=== PATIENT | male | born 1945 | race Caucasian/White ===

== ENCOUNTER 2024-01-28 16:14 | Emergency (ER) | payer MEDICARE, OTHER, SELFPAY ==
[2024-01-28 16:17] VITALS: BP 147/82
[2024-01-28 16:19] VITALS: BP 147/82
--- NOTE | 2024-01-28 16:40 | ED.GENMED ---
History of Present Illness
General
Chief Complaint: Facial Problem
Source: patient and spouse
Exam Limitations: none
Time Seen by Provider: 01/28/24 16:39
Nursing documentation reviewed up to this point in time: agreed with
Travel History
Have you had any contact with someone who has COVID-19?: No
Do you have any symptoms of coronavirus? Fever > 100 degrees, chills, cough, shortness of breath, sore throat, loss of taste or smell, muscle aches, or headache?: No
History of Present Illness
History of Present Illness:
78 yo male from home where he lives with , states he's had pain right lower jaw with gradually worsening right jaw and lip swelling over past 2 days. No new medications. Denies fever/chills, n/v. Recently had two of his tooth implants fall out,
one in the right lower jaw.
Hx of Neuropathy, Myasthenia Gravis, Afib on eliquis, HLD, HTN, morbid obesity, BPH w frequent urination, IDDM.
Past History
Past History
ED Past Medical History: Arrthythmia (Atrial fibrillation), CHF, CVA (TIA), HTN, Hypercholesterolemia, IDDM, Psychiatric (Anxiety) and Other (BPH, morbid obesity, neuropathy)
ED Past Surgical History: Orthopedic (Knee arthroscopy)
Social History
Tobacco: Former smoker
Alcohol: None
Drug: None
Personal:
Living: with family
Employment: Retired
Family History
Family History: Other (Noncontributory)
Review of Systems
Review of Systems
Allergies reviewed?: Yes
All Other Systems: ROS reviewed and negative except as documented in HPI and ROS
Constitutional: Denies fever or chills
EENT: Reports mouth pain and mouth swelling; Denies sore throat
Respiratory: Denies trouble breathing
Cardiac: Denies chest pain
ABD/GI: Denies abdominal pain or nausea
Musculoskeletal: Denies neck pain
Skin: Reports no symptoms
Neurological: Denies headache
Phy Exam
Physical Exam
Physical Exam:
GENERAL: No acute distress. A&Ox3.
CONSTITUTIONAL: Afebrile.
EYES: PERRL, conjunctivae normal
Neck: Supple, no lymphadenopathy
ENMT: Right side upper lip and lower lip are mildly swollen. Moist mucus membranes, Pharynx nl no intraoral lesions., R buccal mucosa border tender with no significant swelling, no drainage. No abscess. Numerous blackish nubs in gums
RESPIRATORY: Regular respirations, nonlabored, lungs clear.
CARDIOVASCULAR: Regular rate and rhythm, no murmurs, no rubs.
GI: Soft, nontender, normal BS
MUSCULOSKELETAL: Morbid obesity, bilateral lymphedema
SKIN: Warm, dry, pink
PSYCH: Normal mood and affect. Well kept, interactive and appropriate
NEUROLOGIC: Awake, alert and oriented. No focal neurological deficits
Course
Orders/Labs/Results
Orders:
Orders
01/28/24 16:45
Complete Blood Count/With Diff Urgent
Comprehensive Metabolic Panel Urgent
NT-proBNP Urgent
01/28/24 18:08
Amoxicillin 875 mg/Clav 125 mg [Augmentin 875 mg/125 mg] 1 tablet PO NOW STA
Abnormal Lab Results
01/28/24
16:45
RBC 4.40 L 10^6/uL
(4.70-6.10)
Hgb 12.5 L g/dL
(13.0-18.0)
MCHC 31.5 L g/dL
(33.0-37.0)
MPV 10.7 H fL
(7.4-10.4)
Carbon Dioxide 33 H mmol/L
(22-30)
BUN 26 H mg/dl
(9-20)
Total Protein 6.1 L g/dl
(6.3-8.2)
Albumin 3.3 L g/dl
(3.5-5.0)
01/28/24 16:45
01/28/24 16:45
Vital Signs
Initial and Last Documented VS:
Initial Vital Signs
Temp Pulse Resp BP Pulse Ox
98.2 F 81 18 147/82 94
01/28/24 16:17 01/28/24 16:17 01/28/24 16:17 01/28/24 16:17 01/28/24 16:17
Last Documented Vital Signs
Temp Pulse Resp BP Pulse Ox
98.5 F 68 20 102/91 90
01/29/24 07:38 01/29/24 09:45 01/29/24 09:45 01/29/24 09:00 01/29/24 08:15
MDM/Problems Addressed
Differential Diagnosis Includes:
dental infection/abscess, medication reaction
MDM/Problems Addressed:
78 yo male from home where he lives with , states he's had pain right lower jaw with gradually worsening right jaw and lip swelling over past 2 days. No new medications. Denies fever/chills, recently had two of his tooth implants fall out one in
the R lower jaw.
Hx of Neuropathy, Myasthenia Gravis, Afib on eliquis, HLD, HTN, morbid obesity, BPH w frequent urination, IDDM.
Afebrile, NAD
Mild swelling right upper lip, less on lower lip. Tongue normal, no intraoral lesions, no lymphadenopathy, tender along R lower buccal mucosal border. Mult nubs where teeth were.
Pt does not get out of house. His dentist comes to house, last visit 2 months ago.
Pt has PCP that comes to his house q 6 months.
5:49 PM
at bedside states his face and lip swelling is much improved.
CBC with no clinically significant abnormality
CMP: BUN 26, otherwise unremarkable. Patient instructed to drink more, he says he has not drank anything all day, at bedside says she will encourage him to drink.
Patient denies blurry or double vision, denies trouble chewing or swallowing, is having a little trouble speaking due to the swelling of his lips, he denies new weakness in the arms or legs. He denies shortness of breath, no indication of MG
causing symptoms
[place]: Treat for early dental infection, rx for Augmentin sent to his pharmacy, increase fluids, call PCP to re evaluate if not 100% better in one week. Return instructions reviewed.
Pt and very appreciative of the care.
6:42 PM
Ambulance crew called stating they cannot transport patient home tonight due to lack of staff that can accommodate patient's weight
They will be here in the morning when the new staff shift comes on. Pt and informed
01/29/24
10:00 a.m.
Pt transported back home via ambulance
Lip and facial swelling completely resolved
*Critical Care Note
Total Time (30-74mins, 75-104mins- exclusive of procedures): Not Applicable
ED Attending Note
-
Portions of this chart may have been created with voice recognition software.� Occasional wrong word or��sound alike� substitutions may have occurred due to the inherent limitations of voice recognition software.
Discharge Plan
Departure
Patient Disposition: Home (Routine Discharge)
Date of Disposition: 01/29/24
Time of Disposition: 09:54
Patient with high blood pressure during this ER visit?: No
Condition: Good
Discharge Problem:
Dental infection
Instructions: Tooth Abscess ED
Prescriptions:
New
amoxicillin-pot clavulanate 875-125 mg tablet
1 tab PO BID Qty: 14 0RF
No Action
gabapentin 300 MG capsule
600 mg PO BID
psyllium husk [Metamucil] 0.52 GM capsule
2 tab PO BID
atorvastatin 10 MG tablet
10 mg PO HS
pyridostigmine bromide 60 MG tablet
60 mg PO BID
furosemide 40 MG tablet
40 mg PO BID
cholecalciferol (vitamin D3) 1,000 UNITS tablet
1,000 units PO DAILY
fenofibric acid (choline) 135 MG capsule,delayed release(DR/EC)
135 mg PO DAILY
Eliquis 5 MG tablet
5 mg PO BID
zinc 50 MG tablet
50 mg PO DAILY
insulin lispro [Humalog KwikPen Insulin] 100 UNIT/ML insulin pen
16 units SC BID
fish oil-dha-epa 1 EACH capsule
1 ea PO BID
insulin glargine [Lantus Solostar U-100 Insulin] 300 UNITS/3 ML insulin pen
60 units SC BID
prednisone 10 MG tablet
5 mg PO Q48H
acetaminophen 325 MG tablet
650 mg PO Q4HWA 0RF
doxycycline hyclate 100 MG capsule
100 mg PO Q12@1100,2300 4 Days Qty: 8 0RF
cefuroxime axetil 500 MG tablet
500 mg PO BID 4 Days Qty: 8 0RF
tramadol 50 MG tablet
50 mg PO BIDPRN PRN (Reason: moderate pain) 10 Days Qty: 20 0RF
Referrals:
Conor Hutchison DO [Family Provider] - Follow up in 10 days
Activity Restrictions/Additional Instructions:
As we discussed, although I see no sign of abscess, I have provided you with information FYI.
I sent a prescription to your pharmacy for antibiotic Augmentin to take twice a day for 7 days.
Have your doctor re evaluated in 7-10 days if not 100% better by then
Return here immediately for increasing swelling, pain, fever, vomiting or feeling sicker in any way.
Interventions
Interventions:
*Risk Screen - Suicide Last Done: 01/28/24 16:17
*General Assessment Last Done: 01/28/24 16:17
*Neglect/Abuse Screening Last Done: 01/28/24 16:17
ED- Fall Risk Assessment Last Done: 01/29/24 07:38
*ED COVID-19 Vaccine History Last Done: 01/29/24 09:54
*Nursing Disposition Last Done: 01/29/24 09:54
ED- Neurological Assessment Last Done: 01/29/24 07:38
ED-Skin Assessment Last Done: 01/29/24 07:38
Discharge Date and Time
Print Language: ROMANSH
[2024-01-28 16:55] LABS: % Basophils 0.9 % (0-2); % Eosinophils 3.7 % (0-6); % Immature Granulocytes 0.3 % (0-0.5); % Lymphocytes 32.1 % (20.5-51.1); % Monocytes 7.1 % (1.7-9.3); % Neutrophils 55.9 % (42.2-75.2); Absolute Basophils 0.1 10^3/uL (0-0.2); Absolute Eosinophils 0.3 10^3/uL (0-0.7); Absolute Lymphocytes 2.2 10^3/uL (1.2-3.4); Absolute Monocytes 0.5 10^3/uL (0.1-0.6); Absolute Neutrophils 3.8 10^3/uL (1.4-6.5); Hematocrit 39.7 % (39.0-52.0); Hemoglobin 12.5 g/dL (13.0-18.0); Mean Corp Hgb Conc. 31.5 g/dL (33.0-37.0); Mean Corpuscular Hgb 28.4 pg (27.0-31.0); Mean Corpuscular Volume 90.2 fL (80.0-94.0); Mean Platelet Volume 10.7 fL (7.4-10.4); Nucleated Red Blood Cells % 0 % (-); Platelet Count 189 10^3/uL (130-400); Red Cell Dist. Width 13.9 % (11.5-14.5); White Blood Cell Count 6.7 10^3/uL (4.8-10.8)
[2024-01-28 17:00] VITALS: BP 144/74
[2024-01-28 17:19] LABS: NT-proBNP 399 pg/ml
[2024-01-28 17:57] LABS: ALT (SGPT) 18 U/L (0-50); AST (SGOT) 27 U/L (17-59); Albumin 3.3 g/dl (3.5-5.0); Alkaline Phosphatase 47 U/L (38-126); Blood Urea Nitrogen 26 mg/dl (9-20); Calcium 9.5 mg/dl (8.4-10.2); Carbon Dioxide 33 mmol/L (22-30); Chloride 104 mmol/L (98-107); Glucose 94 mg/dl (70-99); Sodium 143 mmol/L (135-145); Total Bilirubin 0.8 mg/dl (0.2-1.3); Total Protein 6.1 g/dl (6.3-8.2); eGFR > 60.00
[2024-01-28 18:00] VITALS: BP 166/94
[2024-01-28] MEDS: AUGMENTIN 875 MG/125 MG 1 TABLET PO (18:23)
[2024-01-28 23:48] VITALS: BP 159/71
[2024-01-29] VITALS: BP 166/86
[2024-01-29 07:38] VITALS: BP 170/94
[2024-01-29 07:45] VITALS: BP 170/94
[2024-01-29 08:00] VITALS: BP 157/77
[2024-01-29 09:00] VITALS: BP 102/91
--- NOTE | 2024-01-29 09:54 | EDRN ---
verbal report given to Acute Care Transport
== END 2024-01-29 10:02 | disposition home or self-care (01) ==
LOC: EMR 16:14
PROVIDERS: Registered Nurse; EMERGENCY PHYSICIAN Emergency Medicine; FAMILY PHYSICIAN Family Medicine
DX: K04.7 Periapical abscess without sinus (principal); E11.9 Type 2 diabetes mellitus without complications; E66.01 Morbid (severe) obesity due to excess calories; E78.00 Pure hypercholesterolemia, unspecified; G70.00 Myasthenia gravis without (acute) exacerbation; I11.0 Hypertensive heart disease with heart failure; I50.9 Heart failure, unspecified; I48.91 Unspecified atrial fibrillation; N40.1 Benign prostatic hyperplasia with lower urinary tract symptoms; Z79.01 Long term (current) use of anticoagulants; Z79.4 Long term (current) use of insulin; Z86.73 Personal history of transient ischemic attack (TIA), and cerebral infarction without residual deficits; Z87.891 Personal history of nicotine dependence
CPT/HCPCS: 99283; 80053; 83880; 85025

== ENCOUNTER 2024-06-17 21:19 | Emergency (ER) | payer MEDICARE, OTHER, SELFPAY ==
[2024-06-17] VITALS (18 sets, daily range): BP systolic 119–199; BP diastolic 49–113
[2024-06-17 21:25] LABS: Glucose - Point of Care 227 mg/dl (70-99)
[2024-06-17] MEDS: SUBLIMAZE 150 MCG IV (21:30)
[2024-06-17 21:49] LABS: % Basophils 0.9 % (0-2); % Eosinophils 2.4 % (0-6); % Immature Granulocytes 0.3 % (0-0.5); % Neutrophils 72.4 % (42.2-75.2); Absolute Basophils 0.1 10^3/uL (0-0.2); Absolute Eosinophils 0.2 10^3/uL (0-0.7); Absolute Lymphocytes 1.2 10^3/uL (1.2-3.4); Absolute Monocytes 0.4 10^3/uL (0.1-0.6); Absolute Neutrophils 4.8 10^3/uL (1.4-6.5); Mean Corp Hgb Conc. 32.5 g/dL (33.0-37.0); Mean Corpuscular Hgb 27.8 pg (27.0-31.0); Mean Corpuscular Volume 85.7 fL (80.0-94.0); Nucleated Red Blood Cells % 0 % (-); Platelet Count 177 10^3/uL (130-400); Red Blood Cell Count 4.67 10^6/uL (4.70-6.10); Red Cell Dist. Width 15.7 % (11.5-14.5); White Blood Cell Count 6.7 10^3/uL (4.8-10.8)
--- NOTE | 2024-06-17 21:50 | ED.CVA ---
Addendum entered and electronically signed by German Veronica DO 06/18/24 15:48:
Patient was intubated by me using the glide scope and intubated with a 8.0 tube. Was confirmed by auscultation, chest x-ray, direct visualization and as well as capnography. No complications.
Original Note:
History of Present Illness
General
Chief Complaint: CVA/TIA Symptoms
Source: records, family and ambulance crew
Exam Limitations: altered mental status
Time Seen by Provider: 06/17/24 21:36
Nursing documentation reviewed up to this point in time: agreed with
Onset of Stroke Symptoms
Onset of symptoms known: Yes
Date of onset of symptoms: 06/17/24
Time of onset of symptoms: 19:30
Time pt last seen normal is known: Yes
Date last time pt seen normal: 06/17/24
Time last time pt seen normal: 19:30
History of Present Illness
History of Present Illness:
Patient is a 79-year-old male with a history of myasthenia gravis, CHF and atrial fibrillation who is on Eliquis and had 730 tonight while watching the [email or web address] game and after dinner he suddenly went unresponsive according to his . Just prior
to that he had said he had a right sided headache. Patient has chronic muscle pain from his myasthenia's. Years ago he had CHF. Patient has not complained of any GI or symptoms. Patient has not been ill recently with fever, chills, nasal
congestion, sore throat or cough. Patient has not complained of chest pain or shortness of breath.
Past History
Past History
ED Past Medical History: Arrthythmia (Atrial fibrillation), CHF, CVA (TIA), HTN, Hypercholesterolemia, IDDM, Psychiatric (Anxiety) and Other (BPH, morbid obesity, neuropathy, myasthenia gravis)
ED Past Surgical History: Orthopedic (Knee arthroscopy)
Social History
Tobacco: Former smoker
Alcohol: None
Drug: None
Personal:
Living: with family
Employment: Retired
Family History
Family History: Other (Noncontributory)
Review of Systems
Review of Systems
Unable to obtain full review of systems at this time due to: intubated
All Other Systems: Not applicable
Phy Exam
Physical Exam
Physical Exam:
Physical Exam
General: unresponsive to noxious stimuli, morbidly obese, well hydrated
HENT: Normocephalic, supple with no lymphadenopathy, no thyromegaly
Eyes: Clear sclera, conjuctiva without injection, pinpoint pupils
Heart: Regular rhythm and rate. No S3, S4. No murmur.
Lungs: patient with a nonrebreather mask on, no stridor, lung sounds are shallow and coarse but equal bilaterally
Abdomen: Soft, no apparent tenderness, no organomegaly, bowel sounds diminished
Neuro: Patient unresponsive does seem to move all extremities equally as withdraws to pain
Skin: no rash
Extremities: No cyanosis. Bilateral lower extremity chronic edema from the knees distally
Course
Orders/Labs/Results
Orders:
Orders
06/17/24 21:20
Rocuronium [place] [Rocuronium] 100 mg .ROUTE .STK-MED ONE
06/17/24 21:22
Electrocardiogram (*1) Urgent
Reason for Study: Other
Other Reason for Exam: Possible Stroke
Bedside Glucose- Treatment ONCE
Cardiac Monitoring- Treatment ONCE
IV Insert/Care/Rem.- Treatment PRN
Vital Signs As Directed
Frequency: Other
Weight As Directed
Frequency: Once
Comment: ZERO STRETCHER SCALE FOR ACCURATE WEIGHT
O2 Therapy [RESP] Urgent
Titrate/Wean O2 to maintain O2 sat greater than (%): 93
Special Instructions: MAINTAIN CONTINUOUS O2 SATS > OR = 93%
06/17/24 21:23
EKG- Treatment ONCE
Portable Chest Xray [CR Chest Portable - 1 View] Urgent
Comment:
Reason For Exam: tube placement
Reason Study Needs to be Portable: Unable to Transport
06/17/24 21:28
Fentanyl Citrate/Pf [Sublimaze] 200 mcg .ROUTE .STK-MED ONE
06/17/24 21:34
CT HEAD STROKE ALERT W/o Cont Stat
Comment:
Reason For Exam: stroke alert
06/17/24 21:38
Complete Blood Count/With Diff Urgent
Comprehensive Metabolic Panel Urgent
PTT Urgent
Prothrombin Time Urgent
TSH Reflex To Free T4 Urgent
Comment: ADD ON
Troponin I Urgent
Urinalysis Reflex To Culture Urgent
Date Specimen was Collected: 06/17/24
Time Specimen was Collected: 21:23
06/17/24 21:47
CT HEAD/NECK ANG STROKE ALERT Urgent
Reason For Exam: unresponsive
06/17/24 21:48
FentaNYL 1,000 MCG/100 ML [Sublimaze] 1,000 mcg in 100 ml IV NOW
Indication:: Light Sedation
Begin Infusion:: Now
Goal:: pain score </= 1, CPOT 0-2
Maximum dose in mcg/hr:: 300
Initial Dose in mcg/hr:: 100
Titration Instructions:: Titrate every 30 minutes if patient exhibits signs of pain or discomfort
Titration Instructions:: (pain score >/= 2, CPOT >/= 3).
Titration Instructions:: Administer bolus dose and increase infusion by 25 mcg/hr.
Taper Instructions:: If pain score at goal for 4 consecutive hours (pain score </= 1, CPOT 0-2)
Taper Instructions:: decrease infusion by 50 mcg/hr every 2 hours.
Taper Instructions:: When dose </= 50 mcg/hr may turn infusion off and consider PRN
Taper Instructions:: intermittent bolus doses only.
Over-sedation Instructions:: If CPOT 0-2 (goal) and RASS -3 to -5 (below goal) decrease sedative by 50%
Over-sedation Instructions:: first. If pain score remains at goal and RASS remains below goal in 1 hour,
Over-sedation Instructions:: decrease opioid infusion by 50%.
Notify provider:: immediately if pt exhibits: chest wall rigidity, hemodynamic instability,
Notify provider:: agitation/pain despite maximum dosing, pain when RASS below goal.
Additional Instructions:: Patient MUST be mechanically ventilated.
Fentanyl Citrate/Pf [Sublimaze] 100 mcg IV NOW STA
Fentanyl Citrate/Pf [Sublimaze] 50 mcg IV [id number] PRN
06/17/24 21:49
Add On- LAB Urgent
Tests Added?: tsh reflex t4, troponin
06/17/24 22:25
Fentanyl Citrate/Pf [Sublimaze] 150 mcg IV NOW STA
06/17/24 22:26
ABG [Arterial Blood Gas] Urgent
%Oxygen/Room Air: 100
06/17/24 22:31
Nicardipine 40 mg/200 ml [Cardene] 40 mg in 200 ml IV NOW
Initial dose in mg/hr, then titrate:: 5
Titrate to keep:: SBP 140 - 160 mmHg
Titrate by mg/hr:: 2.5 mg/hr
Frequency of titrations (minutes):: 5-15 minutes
Maximum dose in mg/hr:: 15
Begin to taper infusion when:: Remained at goal for 2hrs
Taper by mg/hr:: 2.5 mg/hr
Frequency of taper (minutes) if patient maintains goal:: 15-30 minutes
Taper to off?: Yes
If infusion off & no longer maintaining goal:: Contact Provider
06/17/24 23:00
Prothrombin Complex(Pcc),Human [Kcentra] 2,661 unit Empty Viaflex Container 100 ml [Viaflex Empty Container] 100 ml IV ONCE
Abnormal Lab Results
06/17/24 06/17/24 06/17/24
21:23 21:38 22:26
RBC 4.67 L 10^6/uL
(4.70-6.10)
MCHC 32.5 L g/dL
(33.0-37.0)
RDW 15.7 H %
(11.5-14.5)
Lymphocytes % 18.0 L %
(20.5-51.1)
PT 15.7 H Sec
(11.4-14.6)
pCO2 52 H mmHg
(35-48)
pO2 147 H mmHg
(83-108)
HCO3 35.3 H mmol/L
(21-28)
ABG O2 Sat (Measured) 99.5 H %
(94-98)
Carbon Dioxide 35 H mmol/L
(22-30)
BUN 29 H mg/dl
(9-20)
Glucose 238 H mg/dl
(70-99)
POC Glucose 227 H mg/dl
(70-99)
06/17/24 21:38
06/17/24 21:38
Vital Signs
Initial and Last Documented VS:
Initial Vital Signs
BP Pulse Ox
199/113 100
06/17/24 21:25 06/17/24 21:25
Last Documented Vital Signs
Pulse Resp BP Pulse Ox
63 17 142/69 99
06/17/24 22:55 06/17/24 22:55 06/17/24 22:55 06/17/24 22:55
*Radiology
Radiology exam reviewed: radiology read reviewed (Hemorrhage of the jenn)
*Pulse Oximetry
Patient hypoxic: no
*EKG
Interpreted by ED Provider?: Yes
EKG Intrepretation Date: 06/17/24
EKG Intrepretation Time: 22:24
Interpretation: abnormal
Comparison EKG: no changes
Heart Rate: 63
Rate: normal
Rhythm: sinus
[place]: left axis deviation
Interval: normal interval
QRS Pattern: left bundle branch block and poor R-wave progression
Ischemia: no ischemia
*Traction Power Engineer Interpretation
Rate: normal
Interpretation: normal
Heart Rate: 68
Rhythm: sinus
*Critical Care Note
Total Time (30-74mins, 75-104mins- exclusive of procedures): 45 minutes
ED Attending Note
-
Portions of this chart may have been created with voice recognition software.� Occasional wrong word or��sound alike� substitutions may have occurred due to the inherent limitations of voice recognition software.
Discharge Plan
Departure
Patient Disposition: Acute Care Hospital
Date of Disposition: 06/17/24
Time of Disposition: 22:26
Patient with high blood pressure during this ER visit?: Yes
Condition: Critical
Covid-19: Not Applicable
Discharge Problem:
Cerebrovascular accident (CVA) of pontine structure, Acute intracerebral hemorrhage
Prescriptions:
No Action
gabapentin 300 MG capsule
600 mg PO BID
psyllium husk [Metamucil] 0.52 GM capsule
2 tab PO BID
atorvastatin 10 MG tablet
10 mg PO HS
pyridostigmine bromide 60 MG tablet
60 mg PO BID
furosemide 40 MG tablet
40 mg PO BID
cholecalciferol (vitamin D3) 1,000 UNITS tablet
1,000 units PO DAILY
fenofibric acid (choline) 135 MG capsule,delayed release(DR/EC)
135 mg PO DAILY
Eliquis 5 MG tablet
5 mg PO BID
zinc 50 MG tablet
50 mg PO DAILY
insulin lispro [Humalog KwikPen Insulin] 100 UNIT/ML insulin pen
16 units SC BID
fish oil-dha-epa 1 EACH capsule
1 ea PO BID
insulin glargine [Lantus Solostar U-100 Insulin] 300 UNITS/3 ML insulin pen
60 units SC BID
prednisone 10 MG tablet
10 mg PO Q48H
tramadol 50 MG tablet
50 mg PO BIDPRN PRN (Reason: moderate pain) 10 Days Qty: 20 0RF
Patient Comments:
06/17/2024: last filled 04/27/24, 60 tabs for 30 days from [facility][id number]
metoprolol succinate 25 mg tablet extended release 24 hr
25 mg PO DAILY
nystatin [Klayesta] 100,000 unit/gram powder
1 applic TOPICAL QID
Vyvgart Hytrulo 1,008 mg-11,200 unit/5.6 mL Solution
5.6 ml SC FR
Referrals:
Conor Hutchison DO [Family Provider] -
Hospital Transfer
Other hospital: [facility]
I certify that the patient requires transfer: Yes
Discussed case with accepting physician: Dr. High
Reason for transfer: higher level of care, availability of service and specialties available
Discharge Date and Time
Print Language: BARBADIAN
[2024-06-17 21:56] LABS: APTT 28.7 Sec (23.4-35.0); INR 1.24; PT 15.7 Sec (11.4-14.6)
[2024-06-17 21:57] LABS: ALT (SGPT) 22 U/L (0-50); AST (SGOT) 26 U/L (17-59); Albumin 4.2 g/dl (3.5-5.0); Alkaline Phosphatase 73 U/L (38-126); Blood Urea Nitrogen 29 mg/dl (9-20); Calcium 9.7 mg/dl (8.4-10.2); Carbon Dioxide 35 mmol/L (22-30); Chloride 102 mmol/L (98-107); Glucose 238 mg/dl (70-99); Potassium 4.5 mmol/L (3.5-5.1); Sodium 144 mmol/L (135-145); Total Bilirubin 0.7 mg/dl (0.2-1.3); Total Protein 6.6 g/dl (6.3-8.2); eGFR > 60.00
[2024-06-17 22:09] LABS: Troponin I 0.014 ng/ml
--- NOTE | 2024-06-17 22:11 | PHANOTE ---
Med Rec Note:
Spoke with Pt's spouse regarding pt's home meds. Pt's spouse unsure of frequency of medications, and unsure of pt's medications. Home med list compiled from Dr Vasquez. Spouse states pt took AM medications. Home med list left unconfirmed.
[2024-06-17 22:34] LABS: B.E. 9.5 mmol/L; HCO3 35.3 mmol/L (21-28); O2 Saturation % 99.5 % (94-98); PCO2 52 mmHg (35-48); PO2 147 mmHg (83-108); pH 7.44 (7.35-7.45)
[2024-06-17] MEDS: SUBLIMAZE 100 IV (22:40)
[2024-06-17] MEDS: CARDENE 200 IV (22:46)
--- NOTE | 2024-06-17 22:52 | RESPNOTE ---
pt intubated in ED with 8.0 ETT @ 26 (teeth), pt preoxygenated via NRB mask prior to intubation, tolerated well. placement confirmed with chest x-ray, bilateral breath sounds and positive ETCO2. placed on vent without incident
[2024-06-17 22:57] LABS: TSH Reflex To Free T4 3.04 uIU/ml (0.47-4.68)
--- NOTE | 2024-06-17 23:28 | EDRN ---
2324- per EMR orders Kcentra infusion started however EMR showed an error message unable to document administration. Pharmacy ([facility]) verified order was correct in the system. This RN and ER quality control representative verified order and double checked IV pump
settings prior to med administration. KCentra started at 2324 at 8.4ml/min, 2661 units in volume 100mls, administration time is 11minutes, and 52 seconds. Medication end time 2336.
[2024-06-18] VITALS (19 sets, daily range): BP systolic 84–156; BP diastolic 45–80
[2024-06-18] MEDS: DOPamine 400 MG 250 IV (01:25)
[2024-06-18] MEDS: NSS 250 IV (01:35)
--- NOTE | 2024-06-18 15:46 | ED.CVA ---
History of Present Illness
General
Chief Complaint: CVA/TIA Symptoms
Time Seen by Provider: 06/17/24 21:36
Past History
Past History
ED Past Medical History: Arrthythmia (Atrial fibrillation), CHF, CVA (TIA), HTN, Hypercholesterolemia, IDDM, Psychiatric (Anxiety) and Other (BPH, morbid obesity, neuropathy, myasthenia gravis)
ED Past Surgical History: Orthopedic (Knee arthroscopy)
Social History
Tobacco: Former smoker
Alcohol: None
Drug: None
Personal:
Living: with family
Employment: Retired
Family History
Family History: Other (Noncontributory)
Course
Orders/Labs/Results
Orders:
Orders
06/17/24 21:20
Rocuronium Vista [Rocuronium] 100 mg .ROUTE .STK-MED ONE
06/17/24 21:22
Electrocardiogram (*1) Urgent
Reason for Study: Other
Other Reason for Exam: Possible Stroke
Bedside Glucose- Treatment ONCE
Cardiac Monitoring- Treatment ONCE
IV Insert/Care/Rem.- Treatment PRN
Vital Signs As Directed
Frequency: Other
Weight As Directed
Frequency: Once
Comment: ZERO STRETCHER SCALE FOR ACCURATE WEIGHT
O2 Therapy [RESP] Urgent
Titrate/Wean O2 to maintain O2 sat greater than (%): 93
Special Instructions: MAINTAIN CONTINUOUS O2 SATS > OR = 93%
06/17/24 21:23
EKG- Treatment ONCE
Portable Chest Xray [CR Chest Portable - 1 View] Urgent
Comment:
Reason For Exam: tube placement
Reason Study Needs to be Portable: Unable to Transport
06/17/24 21:28
Fentanyl Citrate/Pf [Sublimaze] 200 mcg .ROUTE .STK-MED ONE
06/17/24 21:34
CT HEAD STROKE ALERT W/o Cont Stat
Comment:
Reason For Exam: stroke alert
06/17/24 21:38
Complete Blood Count/With Diff Urgent
Comprehensive Metabolic Panel Urgent
PTT Urgent
Prothrombin Time Urgent
TSH Reflex To Free T4 Urgent
Comment: ADD ON
Troponin I Urgent
06/17/24 21:47
CT HEAD/NECK ANG STROKE ALERT Urgent
Reason For Exam: unresponsive
06/17/24 21:48
FentaNYL 1,000 MCG/100 ML [Sublimaze] 1,000 mcg in 100 ml IV NOW
Indication:: Light Sedation
Begin Infusion:: Now
Goal:: pain score </= 1, CPOT 0-2
Maximum dose in mcg/hr:: 300
Initial Dose in mcg/hr:: 100
Titration Instructions:: Titrate every 30 minutes if patient exhibits signs of pain or discomfort
Titration Instructions:: (pain score >/= 2, CPOT >/= 3).
Titration Instructions:: Administer bolus dose and increase infusion by 25 mcg/hr.
Taper Instructions:: If pain score at goal for 4 consecutive hours (pain score </= 1, CPOT 0-2)
Taper Instructions:: decrease infusion by 50 mcg/hr every 2 hours.
Taper Instructions:: When dose </= 50 mcg/hr may turn infusion off and consider PRN
Taper Instructions:: intermittent bolus doses only.
Over-sedation Instructions:: If CPOT 0-2 (goal) and RASS -3 to -5 (below goal) decrease sedative by 50%
Over-sedation Instructions:: first. If pain score remains at goal and RASS remains below goal in 1 hour,
Over-sedation Instructions:: decrease opioid infusion by 50%.
Notify provider:: immediately if pt exhibits: chest wall rigidity, hemodynamic instability,
Notify provider:: agitation/pain despite maximum dosing, pain when RASS below goal.
Additional Instructions:: Patient MUST be mechanically ventilated.
Fentanyl Citrate/Pf [Sublimaze] 100 mcg IV NOW STA
Fentanyl Citrate/Pf [Sublimaze] 50 mcg IV [id number] PRN
06/17/24 21:49
Add On- LAB Urgent
Tests Added?: tsh reflex t4, troponin
06/17/24 22:25
Fentanyl Citrate/Pf [Sublimaze] 150 mcg IV NOW STA
06/17/24 22:26
ABG [Arterial Blood Gas] Urgent
%Oxygen/Room Air: 100
06/17/24 22:31
Nicardipine 40 mg/200 ml [Cardene] 40 mg in 200 ml IV NOW
Initial dose in mg/hr, then titrate:: 5
Titrate to keep:: SBP 140 - 160 mmHg
Titrate by mg/hr:: 2.5 mg/hr
Frequency of titrations (minutes):: 5-15 minutes
Maximum dose in mg/hr:: 15
Begin to taper infusion when:: Remained at goal for 2hrs
Taper by mg/hr:: 2.5 mg/hr
Frequency of taper (minutes) if patient maintains goal:: 15-30 minutes
Taper to off?: Yes
If infusion off & no longer maintaining goal:: Contact Provider
06/17/24 23:00
Prothrombin Complex(Pcc),Human [Kcentra] 2,661 unit Empty Viaflex Container 100 ml [Viaflex Empty Container] 100 ml IV ONCE
06/18/24 01:19
0.9% Sodium Chloride 250 ml [Nss] 250 ml IV BOLUS
06/18/24 01:30
DOPamine 400 MG/D5W 250 ML [DOPamine 400 MG] 400 mg in 250 ml IV PER PROTOCOL
Initial dose in mcg/kg/min, then titrate:: 5
Titrate to keep:: SBP > 90 mmHg
Titrate by mcg/kg/min:: 1-2 mcg/kg/min
Frequency of titrations (minutes):: 15
Maximum dose in ICU in mcg/kg/min:: 20
Maximum dose in IMU in mcg/kg/min:: 10
Begin to taper infusion when:: Remained at goal for 4hrs
Taper by mcg/kg/min:: 1-2 mcg/kg/min
Frequency of taper (minutes) if patient maintains goal:: 30
Taper to off?: Yes
If infusion off & no longer maintaining goal:: Contact Provider
Abnormal Lab Results
06/17/24 06/17/24 06/17/24
21:23 21:38 22:26
RBC 4.67 L 10^6/uL
(4.70-6.10)
MCHC 32.5 L g/dL
(33.0-37.0)
RDW 15.7 H %
(11.5-14.5)
Lymphocytes % 18.0 L %
(20.5-51.1)
PT 15.7 H Sec
(11.4-14.6)
pCO2 52 H mmHg
(35-48)
pO2 147 H mmHg
(83-108)
HCO3 35.3 H mmol/L
(21-28)
ABG O2 Sat (Measured) 99.5 H %
(94-98)
Carbon Dioxide 35 H mmol/L
(22-30)
BUN 29 H mg/dl
(9-20)
Glucose 238 H mg/dl
(70-99)
POC Glucose 227 H mg/dl
(70-99)
06/17/24 21:38
06/17/24 21:38
Vital Signs
Initial and Last Documented VS:
Initial Vital Signs
BP Pulse Ox
199/113 100
06/17/24 21:25 06/17/24 21:25
Last Documented Vital Signs
Pulse Resp BP Pulse Ox
76 19 121/57 99
06/18/24 02:00 06/18/24 02:00 06/18/24 02:00 06/18/24 02:00
Procedures
Intubations
Procedure completed by: luis
Method of Intubation: glidescope
Tube size (cm): 8.0
Placement confirmed by: auscutation, CXR, capnography and direct visualization
Breath sounds after intubation: equal
Intubation complications: no complications
ED Attending Note
-
Portions of this chart may have been created with voice recognition software.� Occasional wrong word or��sound alike� substitutions may have occurred due to the inherent limitations of voice recognition software.
Discharge Plan
Departure
Patient Disposition: Acute [facility]
Date of Disposition: 06/17/24
Time of Disposition: 22:26
Patient with high blood pressure during this ER visit?: Yes
Condition: Critical
Covid-19: Not Applicable
Discharge Problem:
Cerebrovascular accident (CVA) of pontine structure, Acute intracerebral hemorrhage
Prescriptions:
No Action
gabapentin 300 MG capsule
600 mg PO BID
psyllium husk [Metamucil] 0.52 GM capsule
2 tab PO BID
atorvastatin 10 MG tablet
10 mg PO HS
pyridostigmine bromide 60 MG tablet
60 mg PO BID
furosemide 40 MG tablet
40 mg PO BID
cholecalciferol (vitamin D3) 1,000 UNITS tablet
1,000 units PO DAILY
fenofibric acid (choline) 135 MG capsule,delayed release(DR/EC)
135 mg PO DAILY
Eliquis 5 MG tablet
5 mg PO BID
zinc 50 MG tablet
50 mg PO DAILY
insulin lispro [Humalog KwikPen Insulin] 100 UNIT/ML insulin pen
16 units SC BID
fish oil-dha-epa 1 EACH capsule
1 ea PO BID
insulin glargine [Lantus Solostar U-100 Insulin] 300 UNITS/3 ML insulin pen
60 units SC BID
prednisone 10 MG tablet
10 mg PO Q48H
tramadol 50 MG tablet
50 mg PO BIDPRN PRN (Reason: moderate pain) 10 Days Qty: 20 0RF
Patient Comments:
06/17/2024: last filled 04/27/24, 60 tabs for 30 days from [facility][id number]
metoprolol succinate 25 mg tablet extended release 24 hr
25 mg PO DAILY
nystatin [Klayesta] 100,000 unit/gram powder
1 applic TOPICAL QID
Vyvgart Hytrulo 1,008 mg-11,200 unit/5.6 mL Solution
5.6 ml SC FR
Referrals:
Conor Hutchison DO [Family Provider] -
Hospital Transfer
Other hospital: [facility]
I certify that the patient requires transfer: Yes
Discussed case with accepting physician: Dr. High
Reason for transfer: higher level of care, availability of service and specialties available
Interventions
Interventions:
*Risk Screen - Suicide Last Done: 06/18/24 00:30
*Neglect/Abuse Screening Last Done: 06/18/24 00:30
*ED COVID-19 Vaccine History Last Done: 06/18/24 00:29
*Nursing Disposition Last Done: 06/18/24 02:18
ED- Pulmonary Assessment Last Done: 06/17/24 21:56
ED- Neurological Assessment Last Done: 06/17/24 21:56
ED- Cardiac Assessment Last Done: 06/17/24 21:56
ED Swallowing Screen Last Done: 06/17/24 21:56
Discharge Date and Time
Discharge Date/Time: 06/18/24 02:39
Print Language: ROMANSH
== END 2024-06-18 02:39 | disposition short-term general hospital (02) ==
LOC: EMR 21:19
PROVIDERS: EMERGENCY PHYSICIAN Emergency Medicine; FAMILY PHYSICIAN Family Medicine
DX: I61.3 Nontraumatic intracerebral hemorrhage in brain stem (principal); Z87.891 Personal history of nicotine dependence; I10 Essential (primary) hypertension; I50.9 Heart failure, unspecified; I48.91 Unspecified atrial fibrillation
CPT/HCPCS: 99291; 31500; 96374; 96375 ×2; 96376; 70450; 70496; 70498; 71045; 80053; 82805; 82962; 84443; 84484; 85025; 85610; 85730; 93005; 94002; J7168; Q9967